=== PATIENT | female | born 1950 | race Caucasian/White ===

== ENCOUNTER → 2017-10-26 | Emergency (ER) | payer SELFPAY ==
[~2017-10-26] VITALS: Wt 55.4 kg
[~2017-10-26] MED LIST: ASPI-664 PO; FENO145T19 PO; LORA-441 PO; MECL12.5 PO; PANT40TA3 PO; VALS40TA2 PO; ZOC10 PO
== END | disposition left against medical advice (07) ==
LOC: E/R 12:43
DX: Z53.21 Procedure and treatment not carried out due to patient leaving prior to being seen by health care provider (principal)

== ENCOUNTER 2019-05-26 09:56 | Emergency (ER) | payer OTHER ==
[~2019-05-26] VITALS: Ht 157.5 cm; Wt 55.2 kg
[~2019-05-26 09:56] MED LIST changes: +ASPI-1046 PO; -ASPI-664 PO; -FENO145T19 PO; +FENO145T37 PO; +PENI500T PO
[2019-05-26 10:00] VITALS: BP 133/66; PULSE 82; RESP 16; Ht 157.5 cm; Wt 55.2 kg
--- NOTE | 2019-05-26 19:34 | ERD ---
ER Documentation Chief Complaint Chief Complaint LEFT EAR PAIN, THROAT PAIN, ONSET 1 DAY HPI 68yo F presents for evaluation of fever and throat pain radiating to her left ear x 1 day. Pt notes fever yesterday of 102F and difficulty swallowing. She notes use of advil for her symptoms which she took earlier today. She denies cough, hemoptysis, SOB, chest pain, or diaphoresis. ROS All systems reviewed and are negative except as per history of present illness. Medications Home Meds Active Scripts Penicillin V Potassium* (Penicillin V K*) 500 Mg Tab, 500 MG PO BID for 10 Days, #20 TAB Prov:LUIS CR PA-C 05/26/19 Lorazepam* (Ativan*) 0.5 Mg Tablet, 0.5 MG PO Q8, #20 Prov:NEO DOMINGO MD 08/26/15 Reported Medications Simvastatin (Simvastatin) 10 Mg Tablet, 10 MG PO HS, TAB 08/25/15 Aspirin* (Aspirin* (EC)) 81 Mg Tablet.dr, 81 MG PO DAILY, TAB 08/25/15 Fenofibrate Nanocrystallized* (Fenofibrate*) 145 Mg Tablet, 145 MG PO DAILY, TAB 08/25/15 Pantoprazole* (Protonix*) 40 Mg Tablet.dr, 40 MG PO DAILY, TAB 08/25/15 Valsartan* (Diovan*) 40 Mg Tablet, 40 MG PO DAILY, TAB 08/25/15 Meclizine Hcl* (Meclizine Hcl*) 12.5 Mg Tablet, 12.5 MG PO Q8H PRN for DIZZINESS, TAB 08/25/15 Allergies Allergies: Coded Allergies: No Known Allergy (Unverified , 08/26/15) PMhx/Soc History of Surgery: No Anesthesia Reaction: No Hx Respiratory Disorders: No Hx Cardiac Disorders: Yes (htn, high chol.) Hx Psychiatric Problems: Yes (anxiety) Hx Miscellaneous Medical Probl: No Hx Alcohol Use: No Hx Substance Use: No Hx Tobacco Use: No FmHx Family History: No diabetes, No coronary disease, No other Physical Exam Vitals Vital Signs Date Temp Pulse Resp B/P (MAP) Pulse Ox O2 O2 Flow FiO2 Time Delivery Rate 05/26/19 99.3 82 16 133/66 96 10:00 (88) Physical Exam Const: No acute distress Head: Atraumatic Eyes: Normal Conjunctiva ENT: Bilat TMs visible with no erythema or bulging. External auditory canals free of cerumen, foreign body, discharge, edema, or erythema. Normal External Ears, Nose and Mouth. Uvula midline. Bilateral edematous and erythematous to nsils, no exudates visualized. Neck: Full range of motion. No meningismus.Tender cervical LAD. Resp: Clear to auscultation bilaterally Cardio: Regular rate and rhythm, no murmurs Neur: Awake and alert Psych: Normal Mood and Affect Procedures/MDM MDM: This is a 68yo F who presents with complaint of fever, sore throat and left ear pain x 1 day. Physical exam revealed bilateral tonsilar edema and erythema, TMs unremarkable. Based on centor criteria, patient will be treated for presumed bacterial pharyngitis. No signs of peritonsillar abscess. Low suspicion for mono, SBI, and meningitis. Pt will be discharged home with antibiotics, close f/u with pcp and advised to return to ER if worsening or new symptoms Departure Diagnosis: Primary Impression: Pharyngitis Condition: Stable Patient Instructions: Strep Throat LUIS CR PA-C May 26, 2019 19:34
== END 2019-05-26 11:33 | disposition home or self-care (01) ==
LOC: FTE 09:56
DX: J02.9 Acute pharyngitis, unspecified (principal)
CPT/HCPCS: 99283